=== PATIENT | male | born 1990 | race African-American/Black ===

== ENCOUNTER 2019-04-14 21:30 | Emergency (ER) | payer OTHER ==
[~2019-04-14] VITALS: Ht 190.5 cm; Wt 113.4 kg
[2019-04-14] MEDS ORDERED: NOHOMEMEDICATIONS (21:33)
[2019-04-14 22:39] LABS: HEMATOCRIT 41.1 % (42.0-52.0); HEMOGLOBIN 13.2 gm/dL (14.0-18.0); MCH 28.3 pg (26.0-34.0); MCHC 32.1 g/dL (28.0-37.0); MCV 88.4 fL (80.0-100.0); RBC 4.65 mil/uL (4.50-6.00)
[2019-04-14 22:53] LABS: CALCIUM 9.2 mg/dL (8.5-10.1); POTASSIUM 3.5 mmol/L (3.5-5.1)
[2019-04-14 22:54] LABS: URINE BILIRUBIN NEGATIVE (Negative); URINE BLOOD NEGATIVE (Negative); URINE CLARITY CLEAR; URINE COLOR YELLOW; URINE GLUCOSE-RANDOM* NEGATIVE (Negative); URINE KETONES NEGATIVE (Negative); URINE LEUKOCYTES-REFLEX NEGATIVE (Negative); URINE NITRITE-REFLEX NEGATIVE (Negative); URINE PROTEIN (DIPSTICK) NEGATIVE (Negative); URINE SPECIFIC GRAVITY 1.015 (1.005-1.035)
[2019-04-14 22:59] LABS: PROTIME 10.3 Seconds (9.3-11.4)
[2019-04-14] MEDS ORDERED: KEFLEX500 M1 PO (23:01)
[2019-04-14] MEDS ORDERED: CENTANY30 GM TOP (23:01)
[2019-04-14 23:15] VITALS: BP 142/94
[2019-04-19 13:46] LABS: SYPHILIS AB Positive (Negative)
== END 2019-04-14 23:16 | disposition home or self-care (01) ==
LOC: ER 21:30
PROVIDERS: Physician Assistant
DX: R21 Rash and other nonspecific skin eruption (principal); L29.9 Pruritus, unspecified

== ENCOUNTER 2019-04-20 10:19 | Emergency (ER) | payer OTHER ==
[~2019-04-20] VITALS: Ht 190.5 cm; Wt 117.9 kg
[~2019-04-20 10:19] MED LIST: CENTANY30 GM TOP; KEFLEX500 M1 PO; NOHOMEMEDICATIONS
[2019-04-20 10:24] VITALS: BP 148/103
== END 2019-04-20 11:10 | disposition home or self-care (01) ==
LOC: ER 10:19
DX: A51.49 Other secondary syphilitic conditions (principal)

== ENCOUNTER 2019-06-28 22:10 | Emergency (ER) | payer OTHER ==
[~2019-06-28] VITALS: Ht 190.5 cm; Wt 117.9 kg
[2019-06-28 23:48] LABS: URINE BILIRUBIN NEGATIVE (Negative); URINE BLOOD NEGATIVE (Negative); URINE CLARITY CLEAR; URINE COLOR YELLOW; URINE GLUCOSE-RANDOM* NEGATIVE (Negative); URINE KETONES 1+ (Negative); URINE LEUKOCYTES-REFLEX NEGATIVE (Negative); URINE NITRITE-REFLEX NEGATIVE (Negative); URINE PROTEIN (DIPSTICK) NEGATIVE (Negative); URINE SPECIFIC GRAVITY >= 1.030 (1.005-1.035); URINE UROBILINOGEN 0.2 E.U./dl (0.2-1.0)
[2019-06-29] MEDS ORDERED: VENTOLIN HFA 1818 GM INH (00:28)
[2019-06-29] MEDS ORDERED: PREDNISONE 20 M20 MG PO (00:28)
[2019-06-29 00:56] VITALS: BP 135/85
== END 2019-06-29 00:57 | disposition home or self-care (01) ==
LOC: ER 22:10
PROVIDERS: Physician Assistant
DX: J06.9 Acute upper respiratory infection, unspecified (principal); J45.909 Unspecified asthma, uncomplicated

== ENCOUNTER 2020-01-06 00:41 | Emergency (ER) | payer OTHER ==
[~2020-01-06] VITALS: Ht 190.5 cm; Wt 117.9 kg
[~2020-01-06 00:41] MED LIST changes: +PREDNISONE 20 M20 MG PO; +VENTOLIN HFA 1818 GM INH
[2020-01-06] MEDS ORDERED: NAPROSYN500 MG PO (01:33)
[2020-01-06 02:28] VITALS: BP 134/76
== END 2020-01-06 02:20 | disposition home or self-care (01) ==
LOC: ER 00:41
DX: S63.613A Unspecified sprain of left middle finger, initial encounter (principal); N34.2 Other urethritis; J45.909 Unspecified asthma, uncomplicated; Z79.899 Other long term (current) drug therapy; X50.1XXA Overexertion from prolonged static or awkward postures, initial encounter; Y93.61 Activity, american tackle football; Y92.89 Other specified places as the place of occurrence of the external cause; Y99.8 Other external cause status

== ENCOUNTER 2020-08-23 11:01 | Emergency (ER) | payer OTHER ==
[~2020-08-23] VITALS: Ht 190.5 cm; Wt 112.0 kg
[~2020-08-23 11:01] MED LIST changes: +NAPROSYN500 MG PO
[2020-08-23 11:14] LABS: URINE BILIRUBIN NEGATIVE (Negative); URINE BLOOD NEGATIVE (Negative); URINE CLARITY CLEAR; URINE COLOR YELLOW; URINE GLUCOSE-RANDOM* NEGATIVE (Negative); URINE KETONES NEGATIVE (Negative); URINE LEUKOCYTES-REFLEX TRACE (Negative); URINE NITRITE-REFLEX NEGATIVE (Negative); URINE PROTEIN (DIPSTICK) TRACE (Negative)
[2020-08-23 11:31] LABS: HEMOGLOBIN 15.5 gm/dL (14.0-18.0); MCH 30.7 pg (26.0-34.0); MCHC 33.1 g/dL (28.0-37.0); MCV 92.9 fL (80.0-100.0); RBC 5.06 mil/uL (4.50-6.00); RDW 14.4 % (10.5-14.5); WBC 4.2 thou/uL (4.0-11.0)
[2020-08-23 11:46] LABS: CALCIUM 9.6 mg/dL (8.5-10.1); CREATININE 1.3 mg/dL (0.7-1.3); POTASSIUM 4.2 mmol/L (3.5-5.1)
[2020-08-23 11:52] LABS: ALBUMIN 4.2 g/dL (3.4-5.0); TOTAL BILIRUBIN 0.5 mg/dL (0.2-1.0); TOTAL PROTEIN 7.3 g/dL (6.4-8.2)
[2020-08-23 12:49] VITALS: BP 142/69
[2020-08-26 03:06] LABS: SYPHILIS AB Reactive (Non Reactive)
== END 2020-08-23 12:51 | disposition home or self-care (01) ==
LOC: ER 11:01
PROVIDERS: Physician Assistant
DX: R22.43 Localized swelling, mass and lump, lower limb, bilateral (principal); R30.0 Dysuria; Z20.2 Contact with and (suspected) exposure to infections with a predominantly sexual mode of transmission; J45.909 Unspecified asthma, uncomplicated; F12.90 Cannabis use, unspecified, uncomplicated; Z79.899 Other long term (current) drug therapy

== ENCOUNTER 2021-08-24 06:56 | Emergency (ER) | payer OTHER ==
[~2021-08-24] VITALS: Ht 188 cm; Wt 111.1 kg
[2021-08-24 07:49] LABS: URINE BILIRUBIN NEGATIVE (Negative); URINE BLOOD NEGATIVE (Negative); URINE CLARITY CLEAR; URINE COLOR YELLOW; URINE GLUCOSE-RANDOM* NEGATIVE (Negative); URINE KETONES NEGATIVE (Negative); URINE LEUKOCYTES-REFLEX NEGATIVE (Negative); URINE NITRITE-REFLEX NEGATIVE (Negative); URINE PROTEIN (DIPSTICK) NEGATIVE (Negative); URINE SPECIFIC GRAVITY 1.025 (1.005-1.035); URINE UROBILINOGEN 0.2 E.U./dl (0.2-1.0)
[2021-08-24 08:23] VITALS: BP 142/83
== END 2021-08-24 08:23 | disposition home or self-care (01) ==
LOC: ER 06:56
PROVIDERS: Emergency Medicine
DX: M54.50 Low back pain, unspecified (principal); Z11.3 Encounter for screening for infections with a predominantly sexual mode of transmission